=== PATIENT | male | born 1975 | race Caucasian/White ===

== ENCOUNTER 2017-08-17 16:40 | Emergency (ER) | payer BC, MEDICAID ==
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
[2017-08-17 18:14] VITALS: BP 128/76
--- NOTE | 2017-08-18 10:54 | CR ---
INDICATION: Injury, pain anterior humerus. LEFT SHOULDER: Five images of the left shoulder in three projections revealed no evidence of an acute fracture, dislocation, or other significant bone or joint abnormality. [facility]
== END 2017-08-17 17:50 | disposition home or self-care (01) ==
LOC: FB.ED 16:40
DX: S43.402A Unspecified sprain of left shoulder joint, initial encounter (principal); W19.XXXA Unspecified fall, initial encounter; Z88.0 Allergy status to penicillin
CPT/HCPCS: 73030-LT; 99283